=== PATIENT | female | born 1950 | race Caucasian/White ===

== ENCOUNTER 2019-01-01 18:51 | Inpatient (IN) | payer MEDICARE, OTHER ==
[2019-01-01 20:02] LABS: ADD MAN DIFF? NO
[2019-01-01 20:13] LABS: BASOPHIL # 0.1 10^3/ul (0.0-0.1); BASOPHILS % 0.5 % (0.0-2.0); EOSINOPHILS # 0.1 10^3/ul (0.0-0.5); EOSINOPHILS % 0.6 % (0.0-7.0); HEMATOCRIT 43.6 % (37.0-47.0); LYMPHOCYTES % 9.4 % (15.0-51.0); MEAN CORPUSCULAR HGB CONC 29.8 g/dl (32.0-37.0); MEAN CORPUSCULAR VOLUME 83.8 fl (82.0-101.0); MEAN PLATELET VOLUME 10.8 fl (7.4-10.4); MONOCYTE # 0.8 10^3/ul (0.3-0.9); MONOCYTES % 7.6 % (0.0-11.0); NEUTROPHIL # 8.5 10^3/ul (1.6-7.5); NEUTROPHILS % 81.4 % (39.0-77.0); PLATELET COUNT 138 10^3/UL (140-415); RED CELL DISTRIBUTION WIDTH 17.3 % (11.5-14.5)
[2019-01-01 20:13] LABS: WHITE BLOOD COUNT 10.4 10^3/ul (4.8-10.8)
[2019-01-01] MEDS: ONDANSETRON 4 MG INJ IV (20:15)
[2019-01-01] MEDS: BELLADONNA/PHENOBARBITAL TAB PO (20:15)
[2019-01-01] MEDS: SOD CHLORIDE 0.9% 500 ML IV (20:15)
[2019-01-01] MEDS: morphine 4 MG/ML VIAL IV (20:15)
[2019-01-01] MEDS: LIDOCAINE/MYLANTA 40 ML BTL PO (20:15)
[2019-01-01 20:31] LABS: INR 2.22; PARTIAL THROMBOPLASTIN TIME 36.1 Sec (23.0-35.0); PROTIME 24.7 Sec (11.9-14.9); PT RATIO 1.9
[2019-01-01 20:34] LABS: ALANINE AMINOTRANSFERASE 14 IU/L (13-69); ALBUMIN 3.8 g/dl (3.3-4.9); ALBUMIN/GLOBULIN RATIO 1.15; ALKALINE PHOSPHATASE 62 IU/L (42-121); ANION GAP 7 (5-13); ASPARTATE AMINO TRANSFERASE 22 IU/L (15-46); BILIRUBIN,INDIRECT 0.1 mg/dl (0-1.1); BILIRUBIN,TOTAL 0.1 mg/dl (0.2-1.3); BLOOD UREA NITROGEN 19 mg/dl (7-20); CALCIUM 9.9 mg/dl (8.4-10.2); CARBON DIOXIDE 32 mmol/L (21-31); CHLORIDE 101 mmol/L (97-110); CREATININE 0.95 mg/dl (0.44-1.00); Estimated GFR 59 mL/min (>60); GLUCOSE 171 mg/dl (70-220); LIPASE 39 U/L (23-300); POTASSIUM 4.4 mmol/L (3.5-5.1); SODIUM 140 mmol/L (135-144); TOTAL PROTEIN 7.1 g/dl (6.1-8.1)
[2019-01-01 20:45] LABS: TROPONIN-I < 0.012 ng/ml (0.000-0.120)
[2019-01-02] MEDS: DOCUSATE SODIUM 100 MG CAP PO ×2 (00:30→09:00)
[2019-01-02] MEDS: POLYETHYLENE GLYCOL 17 GM PACKET PO ×3 (00:30→15:01)
[2019-01-02] MEDS: HEPARIN 5,000 UNIT/1 ML VIAL SC (02:00)
[2019-01-02] MEDS: morphine 4 MG/ML VIAL IV ×3 (03:33→22:15)
[2019-01-02] MEDS: SENNA TAB PO (09:00)
[2019-01-02] MEDS: NYSTATIN 30 GM POWDER BTL TOP ×3 (09:00→21:12)
[2019-01-02] MEDS: metroNIDAZOLE 500 MG/NS (PMX) 100 ML IVPB ×2 (15:00→21:16)
[2019-01-02] MEDS: COLLAGENASE 5 GM (UD JAR) TOP (15:00)
[2019-01-02] MEDS: DEXTROSE 5%-0.45% NACL 1,000 ML IV ×2 (15:01→23:30)
[2019-01-02] MEDS: CIPROFLOXACIN 400MG/D5W 200 ML IVPB (17:57)
[2019-01-02] MEDS: HYOSCYAMINE 0.125 MG SUBL TAB PO (21:12)
[2019-01-03] MEDS: DEXTROSE 5%-0.45% NACL 1,000 ML IV ×3 (04:31→19:06)
[2019-01-03 05:25] LABS: ADD MAN DIFF? NO
[2019-01-03 05:35] LABS: BASOPHILS % 0.5 % (0.0-2.0); EOSINOPHILS # 0.1 10^3/ul (0.0-0.5); EOSINOPHILS % 2.3 % (0.0-7.0); HEMATOCRIT 36.5 % (37.0-47.0); HEMOGLOBIN 11.4 g/dl (12.0-16.0); LYMPHOCYTES # 1.1 10^3/ul (0.8-2.9); LYMPHOCYTES % 18.8 % (15.0-51.0); MEAN CORPUSCULAR HEMOGLOBIN 25.4 pg (29.0-33.0); MEAN CORPUSCULAR HGB CONC 31.2 g/dl (32.0-37.0); MEAN CORPUSCULAR VOLUME 81.5 fl (82.0-101.0); MEAN PLATELET VOLUME 10.2 fl (7.4-10.4); MONOCYTE # 0.8 10^3/ul (0.3-0.9); MONOCYTES % 12.6 % (0.0-11.0); NEUTROPHIL # 3.9 10^3/ul (1.6-7.5); NEUTROPHILS % 65.1 % (39.0-77.0); PLATELET COUNT 100 10^3/UL (140-415); RED BLOOD COUNT 4.48 10^6/ul (4.20-5.40); RED CELL DISTRIBUTION WIDTH 17.3 % (11.5-14.5)
[2019-01-03 05:49] LABS: PARTIAL THROMBOPLASTIN TIME 42.8 Sec (23.0-35.0); PROTIME 27.1 Sec (11.9-14.9); PT RATIO 2.1
[2019-01-03 06:03] LABS: ALANINE AMINOTRANSFERASE 19 IU/L (13-69); ALBUMIN 2.8 g/dl (3.3-4.9); ALKALINE PHOSPHATASE 43 IU/L (42-121); ANION GAP 2 (5-13); ASPARTATE AMINO TRANSFERASE 21 IU/L (15-46); BILIRUBIN,INDIRECT 0.3 mg/dl (0-1.1); BILIRUBIN,TOTAL 0.3 mg/dl (0.2-1.3); BLOOD UREA NITROGEN 15 mg/dl (7-20); CALCIUM 8.3 mg/dl (8.4-10.2); CARBON DIOXIDE 33 mmol/L (21-31); CHLORIDE 103 mmol/L (97-110); CHOLESTEROL 125 mg/dl (100-200); CREATININE 0.77 mg/dl (0.44-1.00); Estimated GFR > 60 mL/min (>60); GLUCOSE 164 mg/dl (70-220); HDL CHOLESTEROL 31 mg/dl (35-98); LDL CHOLESTEROL,CALCULATED 69 mg/dl; MAGNESIUM 1.8 mg/dl (1.7-2.5); POTASSIUM 4.3 mmol/L (3.5-5.1); SODIUM 138 mmol/L (135-144); TOTAL PROTEIN 5.6 g/dl (6.1-8.1); TRIGLYCERIDES 126 mg/dl (0-149)
[2019-01-03] MEDS: metroNIDAZOLE 500 MG/NS (PMX) 100 ML IVPB ×3 (06:03→22:47)
[2019-01-03] MEDS: HYOSCYAMINE 0.125 MG SUBL TAB PO ×3 (06:03→22:00)
[2019-01-03] MEDS: PANTOPRAZOLE (EC) 40 MG TAB PO (06:03)
[2019-01-03 06:05] LABS: HEMOGLOBIN A1C 7.7 % (0-5.9)
[2019-01-03] MEDS: COLLAGENASE 5 GM (UD JAR) TOP (08:27)
[2019-01-03] MEDS: DOCUSATE SODIUM 100 MG CAP PO (08:27)
[2019-01-03] MEDS: SENNA TAB PO (08:27)
[2019-01-03] MEDS: CIPROFLOXACIN 400MG/D5W 200 ML IVPB ×2 (08:27→20:39)
[2019-01-03] MEDS: POLYETHYLENE GLYCOL 17 GM PACKET PO (08:27)
[2019-01-03] MEDS: NYSTATIN 30 GM POWDER BTL TOP ×2 (08:28→20:39)
[2019-01-03] MEDS: morphine 4 MG/ML VIAL IV (08:36)
[2019-01-03] MEDS: ONDANSETRON 4 MG TAB PO (08:49)
[2019-01-03] MEDS: THIAMINE 100 MG TAB PO ×2 (09:30→12:02)
[2019-01-03] MEDS: TERBINAFINE 250 MG TAB PO ×3 (09:30→20:38)
[2019-01-03 09:59] LABS: IRON 22 ug/dl (35-150)
[2019-01-03] MEDS: FLUTICASONE/VILANTEROL 100-25 INH ×2 (10:00→12:02)
[2019-01-03] MEDS: CELECOXIB 100 MG CAP PO ×3 (10:00→20:38)
[2019-01-03 10:49] LABS: % IRON SATURATION 7 % SAT (22-52); TOTAL IRON BINDING CAPACITY 315 ug/dl (241-421)
[2019-01-03 11:18] LABS: HEPATITIS B SURFACE ANTIGEN NEGATIVE (NEGATIVE)
[2019-01-03 11:36] LABS: HEPATITIS C VIRAL ANTIBODY NEGATIVE (NEGATIVE)
[2019-01-03] MEDS: GABAPENTIN 300 MG CAP PO ×2 (13:27→20:38)
[2019-01-03] MEDS: WARFARIN 5 MG TAB PO (17:43)
[2019-01-03] MEDS: SPIRONOLACTONE 50 MG TAB PO (17:44)
[2019-01-03] MEDS: traZODone 50 MG TAB PO (20:37)
[2019-01-03] MEDS: MONTELUKAST 10 MG TAB PO (20:38)
[2019-01-03] MEDS: HYDROCODONE/APAP (7.5/325) TAB PO (22:47)
[2019-01-03] MEDS: ZOLPIDEM 5 MG TAB PO (22:48)
[2019-01-04] MEDS: ZOLPIDEM 5 MG TAB PO ×2 (00:20→21:46)
[2019-01-04] MEDS: SOD CHLORIDE 0.9% 250 ML IV (03:23)
[2019-01-04] MEDS: DEXTROSE 5%-0.45% NACL 1,000 ML IV ×2 (05:30→17:37)
[2019-01-04] MEDS: metroNIDAZOLE 500 MG/NS (PMX) 100 ML IVPB ×4 (05:51→22:37)
[2019-01-04] MEDS: HYOSCYAMINE 0.125 MG SUBL TAB PO ×3 (05:51→21:46)
[2019-01-04] MEDS: PANTOPRAZOLE (EC) 40 MG TAB PO (05:53)
[2019-01-04] MEDS: SPIRONOLACTONE 50 MG TAB PO ×2 (05:53→17:39)
[2019-01-04] MEDS: DOCUSATE SODIUM 100 MG CAP PO (08:40)
[2019-01-04] MEDS: POLYETHYLENE GLYCOL 17 GM PACKET PO (08:40)
[2019-01-04] MEDS: FLUTICASONE/VILANTEROL 100-25 INH (08:40)
[2019-01-04] MEDS: TERBINAFINE 250 MG TAB PO ×2 (08:40→20:18)
[2019-01-04] MEDS: THIAMINE 100 MG TAB PO (08:40)
[2019-01-04] MEDS: NYSTATIN 30 GM POWDER BTL TOP ×2 (08:40→20:18)
[2019-01-04] MEDS: COLLAGENASE 5 GM (UD JAR) TOP (08:40)
[2019-01-04] MEDS: SENNA TAB PO (08:41)
[2019-01-04] MEDS: CIPROFLOXACIN 400MG/D5W 200 ML IVPB (08:41)
[2019-01-04] MEDS: CELECOXIB 100 MG CAP PO ×2 (08:41→20:18)
[2019-01-04] MEDS: GABAPENTIN 300 MG CAP PO ×3 (08:41→20:18)
[2019-01-04] MEDS: HYDROCODONE/APAP (7.5/325) TAB PO ×2 (08:46→21:46)
[2019-01-04] MEDS ORDERED: PHYTONADIONE 10 MG/ML INJ SC (15:00)
[2019-01-04] MEDS: LACTULOSE 30ML CUP PO (15:35)
[2019-01-04] MEDS: MAGNESIUM CITRATE 300 ML BTL PO (17:38)
[2019-01-04] MEDS: TIOTROPIUM 18 MCG CAPSULE INHA DEV INH (17:38)
[2019-01-04] MEDS: CIPROFLOXACIN 500 MG TAB PO (17:39)
[2019-01-04] MEDS: WARFARIN 5 MG TAB PO (17:39)
[2019-01-04] MEDS: traZODone 50 MG TAB PO (20:18)
[2019-01-04] MEDS: MONTELUKAST 10 MG TAB PO (20:18)
[2019-01-05] MEDS: DEXTROSE 5%-0.45% NACL 1,000 ML IV ×2 (00:53→10:36)
[2019-01-05 05:45] LABS: ADD MAN DIFF? NO
[2019-01-05] MEDS: PANTOPRAZOLE (EC) 40 MG TAB PO (05:52)
[2019-01-05] MEDS: CIPROFLOXACIN 500 MG TAB PO ×2 (05:52→17:13)
[2019-01-05] MEDS: HYOSCYAMINE 0.125 MG SUBL TAB PO ×3 (05:52→21:06)
[2019-01-05] MEDS: metroNIDAZOLE 500 MG/NS (PMX) 100 ML IVPB ×2 (05:52→14:22)
[2019-01-05] MEDS: SPIRONOLACTONE 50 MG TAB PO ×2 (05:54→17:13)
[2019-01-05 05:55] LABS: BASOPHIL # 0.1 10^3/ul (0.0-0.1); EOSINOPHILS # 0.2 10^3/ul (0.0-0.5); EOSINOPHILS % 3.1 % (0.0-7.0); HEMOGLOBIN 11.1 g/dl (12.0-16.0); LYMPHOCYTES % 19.9 % (15.0-51.0); MEAN CORPUSCULAR HEMOGLOBIN 25.3 pg (29.0-33.0); MEAN CORPUSCULAR HGB CONC 30.8 g/dl (32.0-37.0); MEAN CORPUSCULAR VOLUME 82.2 fl (82.0-101.0); MEAN PLATELET VOLUME 10.8 fl (7.4-10.4); MONOCYTE # 0.6 10^3/ul (0.3-0.9); MONOCYTES % 12.4 % (0.0-11.0); NEUTROPHILS % 62.8 % (39.0-77.0); PLATELET COUNT 108 10^3/UL (140-415); RED BLOOD COUNT 4.38 10^6/ul (4.20-5.40); RED CELL DISTRIBUTION WIDTH 16.9 % (11.5-14.5)
[2019-01-05 05:55] LABS: WHITE BLOOD COUNT 4.8 10^3/ul (4.8-10.8)
[2019-01-05 06:23] LABS: MAGNESIUM 1.8 mg/dl (1.7-2.5)
[2019-01-05 06:51] LABS: ALANINE AMINOTRANSFERASE 25 IU/L (13-69); ALBUMIN 2.5 g/dl (3.3-4.9); ALKALINE PHOSPHATASE 67 IU/L (42-121); ANION GAP 3 (5-13); ASPARTATE AMINO TRANSFERASE 29 IU/L (15-46); BILIRUBIN,INDIRECT 0.2 mg/dl (0-1.1); BILIRUBIN,TOTAL 0.2 mg/dl (0.2-1.3); BLOOD UREA NITROGEN 15 mg/dl (7-20); CALCIUM 8.1 mg/dl (8.4-10.2); CARBON DIOXIDE 31 mmol/L (21-31); CHLORIDE 105 mmol/L (97-110); CREATININE 0.73 mg/dl (0.44-1.00); Estimated GFR > 60 mL/min (>60); GLUCOSE 136 mg/dl (70-220); POTASSIUM 4.2 mmol/L (3.5-5.1); SODIUM 139 mmol/L (135-144); TOTAL PROTEIN 5.6 g/dl (6.1-8.1)
[2019-01-05 08:33] LABS: ERYTHROCYTE SEDIMENTATION RATE 40 mm/Hr (0-30)
[2019-01-05] MEDS: TERBINAFINE 250 MG TAB PO ×2 (08:57→20:13)
[2019-01-05] MEDS: GABAPENTIN 300 MG CAP PO ×3 (08:57→20:14)
[2019-01-05] MEDS: POLYETHYLENE GLYCOL 17 GM PACKET PO (08:57)
[2019-01-05] MEDS: SENNA TAB PO (08:57)
[2019-01-05] MEDS: FLUTICASONE/VILANTEROL 100-25 INH (08:57)
[2019-01-05] MEDS: DOCUSATE SODIUM 100 MG CAP PO (08:57)
[2019-01-05] MEDS: CELECOXIB 100 MG CAP PO ×2 (08:57→20:14)
[2019-01-05] MEDS: THIAMINE 100 MG TAB PO (08:57)
[2019-01-05] MEDS: COLLAGENASE 5 GM (UD JAR) TOP (08:58)
[2019-01-05] MEDS: TIOTROPIUM 18 MCG CAPSULE INHA DEV INH (08:58)
[2019-01-05] MEDS: NYSTATIN 30 GM POWDER BTL TOP ×2 (08:58→20:16)
[2019-01-05] MEDS: ONDANSETRON 4 MG INJ IV (08:59)
[2019-01-05] MEDS: HYDROCODONE/APAP (7.5/325) TAB PO (09:10)
[2019-01-05] MEDS: WARFARIN 5 MG TAB PO (17:13)
[2019-01-05] MEDS: MONTELUKAST 10 MG TAB PO (20:13)
[2019-01-05] MEDS: traZODone 50 MG TAB PO (20:14)
[2019-01-05] MEDS: LOPERAMIDE 2 MG CAP PO ×2 (21:07→22:02)
[2019-01-05] MEDS: ZOLPIDEM 5 MG TAB PO (21:07)
[2019-01-06] MEDS: CIPROFLOXACIN 500 MG TAB PO ×2 (05:28→17:54)
[2019-01-06] MEDS: HYOSCYAMINE 0.125 MG SUBL TAB PO ×3 (05:28→21:42)
[2019-01-06] MEDS: SPIRONOLACTONE 50 MG TAB PO (05:28)
[2019-01-06] MEDS: PANTOPRAZOLE (EC) 40 MG TAB PO (05:28)
[2019-01-06 05:48] LABS: ADD MAN DIFF? NO
[2019-01-06 05:54] LABS: BASOPHIL # 0.1 10^3/ul (0.0-0.1); EOSINOPHILS # 0.2 10^3/ul (0.0-0.5); EOSINOPHILS % 3.1 % (0.0-7.0); HEMATOCRIT 37.1 % (37.0-47.0); HEMOGLOBIN 11.5 g/dl (12.0-16.0); LYMPHOCYTES # 1.1 10^3/ul (0.8-2.9); LYMPHOCYTES % 21.8 % (15.0-51.0); MEAN CORPUSCULAR HEMOGLOBIN 25.4 pg (29.0-33.0); MEAN CORPUSCULAR VOLUME 81.9 fl (82.0-101.0); MONOCYTE # 0.6 10^3/ul (0.3-0.9); MONOCYTES % 11.6 % (0.0-11.0); NEUTROPHILS % 61.7 % (39.0-77.0); PLATELET COUNT 113 10^3/UL (140-415); RED BLOOD COUNT 4.53 10^6/ul (4.20-5.40); RED CELL DISTRIBUTION WIDTH 17.5 % (11.5-14.5)
[2019-01-06 05:54] LABS: WHITE BLOOD COUNT 4.8 10^3/ul (4.8-10.8)
[2019-01-06 06:11] LABS: INR 1.96; PROTIME 22.4 Sec (11.9-14.9); PT RATIO 1.8
[2019-01-06 06:20] LABS: PHOSPHORUS 3.3 mg/dl (2.5-4.9)
[2019-01-06 06:20] LABS: MAGNESIUM 1.9 mg/dl (1.7-2.5)
[2019-01-06 06:26] LABS: ANION GAP 2 (5-13); BLOOD UREA NITROGEN 15 mg/dl (7-20); CALCIUM 8.2 mg/dl (8.4-10.2); CARBON DIOXIDE 32 mmol/L (21-31); CHLORIDE 106 mmol/L (97-110); CREATININE 0.71 mg/dl (0.44-1.00); Estimated GFR > 60 mL/min (>60); GLUCOSE 121 mg/dl (70-220); POTASSIUM 4.6 mmol/L (3.5-5.1); SODIUM 140 mmol/L (135-144)
[2019-01-06] MEDS: SENNA TAB PO (09:00)
[2019-01-06] MEDS: POLYETHYLENE GLYCOL 17 GM PACKET PO (09:00)
[2019-01-06] MEDS: NYSTATIN 30 GM POWDER BTL TOP ×2 (09:55→20:31)
[2019-01-06] MEDS: TIOTROPIUM 18 MCG CAPSULE INHA DEV INH (09:56)
[2019-01-06] MEDS: FLUTICASONE/VILANTEROL 100-25 INH (09:56)
[2019-01-06] MEDS: TERBINAFINE 250 MG TAB PO ×2 (09:58→20:30)
[2019-01-06] MEDS: CELECOXIB 100 MG CAP PO (09:58)
[2019-01-06] MEDS: GABAPENTIN 300 MG CAP PO ×3 (09:58→20:30)
[2019-01-06] MEDS: THIAMINE 100 MG TAB PO (09:58)
[2019-01-06] MEDS: COLLAGENASE 5 GM (UD JAR) TOP (09:58)
[2019-01-06] MEDS: HYDROCODONE/APAP (7.5/325) TAB PO (10:04)
[2019-01-06] MEDS: SOD CHLORIDE 0.9% 250 ML IV ×2 (14:10→20:25)
[2019-01-06] MEDS: LOPERAMIDE 2 MG CAP PO (14:13)
[2019-01-06] MEDS: WARFARIN 5 MG TAB PO (17:54)
[2019-01-06] MEDS: MONTELUKAST 10 MG TAB PO (20:30)
[2019-01-06] MEDS: traZODone 50 MG TAB PO (20:30)
[2019-01-06] MEDS: ACETAMINOPHEN 325 MG TAB PO (21:53)
[2019-01-06] MEDS: ARTIFICIAL TEARS 15 ML OPH BOTH EYES (23:17)
[2019-01-06] MEDS: ZOLPIDEM 5 MG TAB PO (23:17)
[2019-01-07] MEDS: SOD CHLORIDE 0.9% 250 ML IV (01:56)
[2019-01-07 05:31] LABS: ADD MAN DIFF? NO
[2019-01-07 05:35] LABS: BASOPHIL # 0.1 10^3/ul (0.0-0.1); BASOPHILS % 1.2 % (0.0-2.0); EOSINOPHILS # 0.2 10^3/ul (0.0-0.5); EOSINOPHILS % 3.1 % (0.0-7.0); HEMATOCRIT 37.6 % (37.0-47.0); HEMOGLOBIN 11.7 g/dl (12.0-16.0); LYMPHOCYTES # 1.1 10^3/ul (0.8-2.9); LYMPHOCYTES % 21.8 % (15.0-51.0); MEAN CORPUSCULAR HEMOGLOBIN 25.5 pg (29.0-33.0); MEAN CORPUSCULAR HGB CONC 31.1 g/dl (32.0-37.0); MEAN CORPUSCULAR VOLUME 82.1 fl (82.0-101.0); MEAN PLATELET VOLUME 11.5 fl (7.4-10.4); MONOCYTE # 0.7 10^3/ul (0.3-0.9); MONOCYTES % 14.1 % (0.0-11.0); PLATELET COUNT 111 10^3/UL (140-415); RED BLOOD COUNT 4.58 10^6/ul (4.20-5.40); RED CELL DISTRIBUTION WIDTH 17.5 % (11.5-14.5)
[2019-01-07 05:35] LABS: WHITE BLOOD COUNT 5.1 10^3/ul (4.8-10.8)
[2019-01-07] MEDS: CIPROFLOXACIN 500 MG TAB PO ×2 (05:57→17:34)
[2019-01-07] MEDS: HYOSCYAMINE 0.125 MG SUBL TAB PO ×2 (05:57→13:38)
[2019-01-07] MEDS: PANTOPRAZOLE (EC) 40 MG TAB PO (05:57)
[2019-01-07] MEDS: ACETAMINOPHEN 325 MG TAB PO ×2 (06:02→13:47)
[2019-01-07 06:04] LABS: MAGNESIUM 1.9 mg/dl (1.7-2.5)
[2019-01-07 06:06] LABS: ALANINE AMINOTRANSFERASE 30 IU/L (13-69); ALBUMIN 2.3 g/dl (3.3-4.9); ALBUMIN/GLOBULIN RATIO 0.82; ALKALINE PHOSPHATASE 56 IU/L (42-121); ANION GAP 2 (5-13); ASPARTATE AMINO TRANSFERASE 32 IU/L (15-46); BILIRUBIN,INDIRECT 0.2 mg/dl (0-1.1); BILIRUBIN,TOTAL 0.2 mg/dl (0.2-1.3); BLOOD UREA NITROGEN 18 mg/dl (7-20); CALCIUM 8.3 mg/dl (8.4-10.2); CARBON DIOXIDE 31 mmol/L (21-31); CHLORIDE 106 mmol/L (97-110); CREATININE 0.67 mg/dl (0.44-1.00); Estimated GFR > 60 mL/min (>60); GLUCOSE 118 mg/dl (70-220); POTASSIUM 4.5 mmol/L (3.5-5.1); SODIUM 139 mmol/L (135-144); TOTAL PROTEIN 5.1 g/dl (6.1-8.1)
[2019-01-07] MEDS: SENNA TAB PO (09:29)
[2019-01-07] MEDS: GABAPENTIN 300 MG CAP PO ×2 (09:29→13:38)
[2019-01-07] MEDS: TERBINAFINE 250 MG TAB PO (09:29)
[2019-01-07] MEDS: THIAMINE 100 MG TAB PO (09:29)
[2019-01-07] MEDS: FLUTICASONE/VILANTEROL 100-25 INH (09:29)
[2019-01-07] MEDS: NACL 0.9% 3 ML SYG IV (09:30)
[2019-01-07] MEDS: NYSTATIN 30 GM POWDER BTL TOP (09:30)
[2019-01-07] MEDS: TIOTROPIUM 18 MCG CAPSULE INHA DEV INH (09:30)
[2019-01-07] MEDS: ARTIFICIAL TEARS 15 ML OPH BOTH EYES ×2 (09:30→17:37)
[2019-01-07] MEDS: COLLAGENASE 5 GM (UD JAR) TOP (09:31)
[2019-01-07] MEDS: WARFARIN 5 MG TAB PO (17:34)
[2019-01-08] MEDS ORDERED: SPIRONOLACTONE 50 MG TAB PO (18:00)
== END 2019-01-07 21:40 | disposition home health service (06) | DRG 391 ==
LOC: 2NE 23:29 → E/R 18:51
DX: R10.84 Generalized abdominal pain (principal); L89.323 Pressure ulcer of left buttock, stage 3; Z68.42 Body mass index [BMI] 45.0-49.9, adult; F11.20 Opioid dependence, uncomplicated; K76.6 Portal hypertension; I85.10 Secondary esophageal varices without bleeding; L03.311 Cellulitis of abdominal wall; I82.502 Chronic embolism and thrombosis of unspecified deep veins of left lower extremity; E66.2 Morbid (severe) obesity with alveolar hypoventilation; D68.4 Acquired coagulation factor deficiency; K59.00 Constipation, unspecified; K70.31 Alcoholic cirrhosis of liver with ascites; J44.9 Chronic obstructive pulmonary disease, unspecified; J45.909 Unspecified asthma, uncomplicated; E11.9 Type 2 diabetes mellitus without complications; G89.4 Chronic pain syndrome; Z85.3 Personal history of malignant neoplasm of breast; M81.0 Age-related osteoporosis without current pathological fracture; D69.6 Thrombocytopenia, unspecified; E65 Localized adiposity; B37.2 Candidiasis of skin and nail; Z87.11 Personal history of peptic ulcer disease; K80.20 Calculus of gallbladder without cholecystitis without obstruction; I87.8 Other specified disorders of veins; D64.9 Anemia, unspecified; M79.3 Panniculitis, unspecified; R19.7 Diarrhea, unspecified; R60.1 Generalized edema
CPT/HCPCS: 36415; 71045; 74176; 76642; 80048; 80053; 80061; 83036; 83540; 83605; 83690; 83735; 84100; 84443; 84484; 85025; 85610; 85651; 85730; 86803; 87340; 93005; 93970; 96374; 96375; 97161; 99285-25